=== PATIENT | male | born 1965 | race African-American/Black ===

== ENCOUNTER 2018-12-24 00:31 | Inpatient (IN) | payer OTHER ==
[~2018-12-24] VITALS: Ht 165.1 cm; Wt 60.8 kg
[2018-12-24 01:52] LABS: BASOPHILS % 1.1 % (0.0-2.0); HEMATOCRIT. 39.8 % (42.0-52.0); HEMOGLOBIN. 13.3 g/dL (14.0-18.0); LYMPHOCYTES % 19.4 % (20.0-50.0); MEAN CORPUSCULAR VOLUME 89.9 fL (80.0-94.0); MEAN PLATELET VOLUME 7.3 fl (7.4-10.4); MONOCYTES % 8.7 % (2.0-8.0); NEUTROPHILS % 66.8 % (40.0-76.0); PLATELET 361 x1000/uL (130-400); RED BLOOD CELL COUNT 4.43 mill/uL (4.7-6.1); RED CELL DISTRIBUTION WIDTH 15.1 % (11.6-14.6)
[2018-12-24 02:00] LABS: CHLORIDE 106 mEq/L (98-107)
[2018-12-24 02:04] LABS: ETHANOL BLOOD < 10 mg/dL
[2018-12-24 03:13] LABS: CLARITY URINE CLEAR (CLEAR); COLOR URINE YELLOW (YELLOW); KETONES URINE TRACE (NEGATIVE); LEUKOCYTE ESTERASE URINE NEGATIVE (NEGATIVE); NITRITE URINE NEGATIVE (NEGATIVE); OCCULT BLOOD URINE NEGATIVE (NEGATIVE); PH URINE 5.5 (4.5-8.0); PROTEIN URINE NEGATIVE (NEGATIVE); SPECIFIC GRAVITY URINE 1.012 (1.005-1.030)
[2018-12-24 03:31] LABS: *AMPHETAMINES SCREEN URINE NEGATIVE (NEGATIVE); *BARBITURATES SCREEN URINE NEGATIVE (NEGATIVE)
[2018-12-24 03:32] LABS: *BENZODIAZEPINES SCREEN URINE NEGATIVE (NEGATIVE); *COCAINE SCREEN URINE NEGATIVE (NEGATIVE); CANNABINOID URINE SCREEN PRESUMTIVE POSITIVE (NEGATIVE); OPIATES URINE SCREEN NEGATIVE (NEGATIVE); PHENCYCLIDINE URINE SCREEN NEGATIVE (NEGATIVE)
[2018-12-24 03:33] LABS: METHADONE URINE SCREEN NEGATIVE (NEGATIVE)
[2018-12-24] MEDS ORDERED: POTASSIUM CHLORIDE 20MEQ TABLET SR PO ONE (03:45)
[2018-12-24] MEDS ORDERED: LORAZEPAM 2MG/ML CPJ IV PRN (07:45)
[2018-12-24] MEDS ORDERED: GUAIFENESIN 200MG/10ML SUGAR FREE UDC PO PRN (07:45)
[2018-12-24] MEDS ORDERED: ONDANSETRON HCL 4MG/2ML INJ IV PRN (07:45)
[2018-12-24] MEDS ORDERED: IPRATROPIUM/ALBUTEROL 0.5-3(2.5)MG/3ML NEB NEB PRN (07:45)
[2018-12-24] MEDS ORDERED: MAGNESIUM/ALUMINUM HYDROXIDE/SIMETHICONE 30ML UDC PO PRN (07:45)
[2018-12-24] MEDS ORDERED: DOCUSATE SODIUM 100MG CAPSULE PO PRN (07:45)
[2018-12-24] MEDS ORDERED: NITROGLYCERIN 0.4MG TABLET SL SL PRN (07:45)
[2018-12-24] MEDS ORDERED: KETOROLAC 15MG/ML VIAL IV PRN (07:45)
[2018-12-24] MEDS ORDERED: CLONIDINE 0.1MG TABLET PO PRN (07:45)
[2018-12-24] MEDS ORDERED: ACETAMINOPHEN 325MG TABLET PO PRN (07:45)
[2018-12-24 08:04] LABS: FOLIC ACID (FOLATE) SERUM 14.4 ng/mL (>5.38)
[2018-12-24 09:30] VITALS: BP 99/61
[2018-12-24] MEDS: SODIUM CHLORIDE 0.9% 1,000 ML IV SCH ×2 (11:25→16:10)
[2018-12-24] MEDS: ENOXAPARIN 40MG/0.4ML SYR SUBCUT SCH (11:26)
[2018-12-24] MEDS: FAMOTIDINE 20MG TABLET PO SCH ×3 (11:26→21:10)
[2018-12-24 12:00] VITALS: BP 94/62
[2018-12-24] MEDS ORDERED: LEVE1000 MT (14:00)
[2018-12-24] MEDS ORDERED: PHEN100C4 MT (14:00)
[2018-12-24 16:13] VITALS: BP 95/59
[2018-12-24 20:00] VITALS: BP 98/55
[2018-12-24] MEDS ORDERED: ZOLPIDEM TARTRATE 5MG TABLET PO PRN (21:00)
[2018-12-24] MEDS: LEVETIRACETAM 500MG TABLET PO SCH ×2 (21:00→21:10)
[2018-12-25] MEDS: SODIUM CHLORIDE 0.9% 1,000 ML IV SCH ×2 (05:30→12:10)
[2018-12-25 08:00] VITALS: BP 103/50
[2018-12-25 08:16] LABS: CHLORIDE 109 mEq/L (98-107)
[2018-12-25] MEDS: FAMOTIDINE 20MG TABLET PO SCH ×2 (09:27→20:24)
[2018-12-25] MEDS: ENOXAPARIN 40MG/0.4ML SYR SUBCUT SCH (09:27)
[2018-12-25] MEDS: LEVETIRACETAM 500MG TABLET PO SCH ×2 (09:27→20:24)
[2018-12-25 12:00] VITALS: BP 99/53
[2018-12-25 16:00] VITALS: BP 100/61
[2018-12-25 20:00] VITALS: BP 90/50
[2018-12-26 04:00] VITALS: BP 103/63
[2018-12-26] MEDS: FAMOTIDINE 20MG TABLET PO SCH (08:25)
[2018-12-26] MEDS: ENOXAPARIN 40MG/0.4ML SYR SUBCUT SCH (08:25)
[2018-12-26] MEDS: LEVETIRACETAM 500MG TABLET PO SCH ×3 (08:25→14:30)
[2018-12-26 08:28] VITALS: BP 91/51
[2018-12-26 12:00] VITALS: BP 85/47
[2018-12-26 13:45] VITALS: BP 93/51
[2018-12-26 16:00] VITALS: BP 86/44
[2018-12-26] MEDS ORDERED: PHENYTOIN SODIUM EXTENDED 100MG CAPSULE PO SCH (18:00)
== END 2018-12-26 20:40 | disposition left against medical advice (07) | DRG 52 ==
LOC: EDBD 00:45 → ER 00:45 → 8WST 04:20 → ENRESERV 08:15
PROVIDERS: ADMIT Internal Medicine; ATTEND Internal Medicine
DX: G93.40 Encephalopathy, unspecified (principal); E83.51 Hypocalcemia; G93.89 Other specified disorders of brain; T42.0X5A Adverse effect of hydantoin derivatives, initial encounter; E87.6 Hypokalemia; F12.10 Cannabis abuse, uncomplicated; F17.200 Nicotine dependence, unspecified, uncomplicated; G40.909 Epilepsy, unspecified, not intractable, without status epilepticus; Z53.21 Procedure and treatment not carried out due to patient leaving prior to being seen by health care provider; D64.9 Anemia, unspecified; Z71.51 Drug abuse counseling and surveillance of drug abuser; Y92.89 Other specified places as the place of occurrence of the external cause; Z79.899 Other long term (current) drug therapy
CPT/HCPCS: 36415; 80061; 80185; 80305; 80320; 81003; 82607; 82746; 83036; 83540; 83550; 83735; 92610; 93005; 93970; 97162; 97166; 99285; C1893; J1650; G0480